=== PATIENT | male | born 1955 | race Caucasian/White ===

== ENCOUNTER → 2017-10-15 | Outpatient (CLI) | payer OTHER ==
[~2017-10-15] MED LIST: AZIT500T47 PO; BENA10TA53 PO; DIA5 PO; DIPH-740 PO; DOXY-179 PO; DULO30CA35 PO; FOLI20CA2 PO; GABA-503 PO; IBU800 PO; IBUP200C74 PO; KET10 PO; LOR5 PO; LOSA100T67 PO; METH2.5T43 PO; NITT TD; NONE NOW; OMEP10SU PO; OXYC-870 PO; OXYC5TAB38 PO; PAN40 PO; PEROXICAM; PRED50TA22 PO; SIMV10TA98 PO; SODI45SP NS
== END ==
LOC: LAB 15:17
PROVIDERS: ATTEND Family Medicine
DX: D45 Polycythemia vera (principal)
CPT/HCPCS: 36415; 85027

== ENCOUNTER → 2017-10-21 | Outpatient (CLI) | payer OTHER | LOC: LAB 15:41 | PROVIDERS: ATTEND Family Medicine | DX: D45 Polycythemia vera (principal) | CPT/HCPCS: 36415; 85027; 99195 ==

== ENCOUNTER → 2017-11-26 | Outpatient (CLI) | payer OTHER ==
[2017-11-26 15:04] VITALS: BP 133/42
== END ==
LOC: SPU 13:44
PROVIDERS: ATTEND Family Medicine
DX: D45 Polycythemia vera (principal)
CPT/HCPCS: 99195

== ENCOUNTER → 2017-11-26 | Outpatient (CLI) | payer OTHER | LOC: LAB 14:24 | PROVIDERS: ATTEND Family Medicine | DX: D45 Polycythemia vera (principal) | CPT/HCPCS: 36415; 85027 ==

== ENCOUNTER → 2017-11-29 | Outpatient (CLI) | payer OTHER ==
[~2017-11-29] MED LIST changes: +BARIUM SULFATE 148 GM POWDER ONE; +BARIUM SULFATE 240 ML ORAL SUS (NECTAR) ONE
--- NOTE | 2017-11-29 17:36 | RADIOLOGY IMAGING REPORT ---
FACILITY: [facility] [place] PATIENT NAME: David Galvan : 1955 MR: [id number] V: [id number] EXAM DATE: ORDERING PHYSICIAN: KERRY LARKIN TECHNOLOGIST: Location: [facility] Patient: David Galvan : 1955 Visit/Account:[id number] Date of Sevice: 11/29/2017 Exam type: ESOPH VIDEO SWALLOWING History: , Hoarseness, esophagitis Comparison: None. Findings: The modified barium swallow was performed by the speech pathologist. The patient received thin bariu m and various substances and a barium tablet. There was no demonstration of laryngeal penetration. Please see the speech pathologist report for complete details. The fluoroscopy dose area product was 285.10 micro-Michelle per meter squared IMPRESSION: 1. As above Report Dictated By: Rehana Zamora MD at 11/29/2017 5:31 PM Report E-Signed By: Rehana Zamroa MD at 11/29/2017 5:32 PM WSN:[id number]
--- NOTE | 2017-11-30 08:53 | SLP MODIFIED BARIUM SWALLOW ---
Speech Language Pathology Modified Barium Swallow Evaluation Report Date of Evaluation: 11/29/17 Patient Name: David Galvan Patient : 1955, 62yrs Physician: Pancho Garcia MD Clinician: Eileen Bhakta M.S., [facility]-CHEMICAL ETCH OPERATOR BACKGROUND The patient is a 62 yr old male. The patient was referred for an MBS to assess swallow structure and function as indicated by s/s of pharyngeal dysphagia including coughing/choking. Oxygen Supplementation: No Level of Consciousness: Non altered Cognitive/Linguistic: intact Orientation: x4 Language: -expressive: nonaphasic -receptive: nonaphasic Speech: -non-apraxic -non-dysarthric Voice -Dysphonia: none -Hypernasality: No -Wet Vocal Quality: No Non-verbal Oral Structure and Function: WFL for speech and swallow Pain with Swallow: Denies. He denied al symptoms of dysphagia during MBS. MODIFIED BARIUM SWALLOW In conjunction with radiology, lateral view with trials of the following consistencies: thin barium liquid (noncarbonated), barium marked pureed, mechanical soft, and regular food consistencies, and a 1cm barium pill. ORAL STAGE Thin Liquids: no evidence of dysphagia . WNL Pureed Foods: no evidence of dysphagia . WNL Mechanical Soft Foods: no evidence of dysphagia . WNL Regular Foods: no evidence of dysphagia . WNL. PHARYNGEAL STAGE Thin Liquid: no evidence of dysphagia WNL. Pureed Food: no evidence of dysphagia WNL. Mechanical Soft Foods: no evidence of dysphagia WNL. Regular Food Consistency: no evidence of dysphagia WNL. Penetration/Aspiration Scale*: Thin liquid: Score of 1= Contrast does not enter airway Puree: Score of 1= Contrast does not enter airway Soft and regular solids: Score of 1= Contrast does not enter airway *(Jimmiek et al. 1996) ESOPHAGEAL STAGE Peristaltic movement appears to be WNL Cervical Esophagus: Materials witnessed clearing from cervical esophagus WNL. Thoracic Esophagus: Materials witnessed clearing from upper/mid/lower thoracic esophagus WNL. ELADIA: Non witnessed. Pt reports only occasional symptoms of reflux. He reports he is inconsistent with prescription medication for this Laryngopharyngeal Reflux (LPR) None witnessed. BARIUM PILL: 1cm barium pill taken with thin liquids. No oral, pharyngeal, or esophageal dysphagia witnessed. SUMMARY Aspiration Risk: Low. Normal Swallow Study. No oral or pharyngeal stage dysphagia witnessed. No laryngeal penetration or aspiration witnessed. Pt. reported experiencing no symptoms of dysphagia during evaluation. 1.Dysphagia Severity Rating Scale (Gramigna, 2006; Anh et. al., 1990): 0 Normal swallow mechanism 2.No modification in consistency of diet is indicated. 3. Patient provided with written and verbal education regarding swallow anatomy and safe swallow recommendations. Pt encouraged to attend 1 or 2 follow up speech therapy treatments for further education regarding compensatory techniques and safety training. Pt reported he may do this but that he is very busy. RECOMMENDATIONS 1. Speech Therapy: Not recommended at this time. Thank you for this referral. Please call [phone] to contact the CHEMICAL ETCH OPERATOR. Eileen Bhakta M.S., [facility]-CHEMICAL ETCH OPERATOR REGISD
== END ==
LOC: RAD 03:31
PROVIDERS: ATTEND Otolaryngology
DX: K21.9 Gastro-esophageal reflux disease without esophagitis (principal); R49.0 Dysphonia
CPT/HCPCS: 74230

== ENCOUNTER 2017-12-29 11:38 | Outpatient (RCR) | payer OTHER ==
[~2017-12-29 11:38] MED LIST changes: -BARIUM SULFATE 148 GM POWDER ONE; -BARIUM SULFATE 240 ML ORAL SUS (NECTAR) ONE
[2018-01-05] MEDS ORDERED: IOPAMIDOL 76% 75 ML INFUS BTL 75 ML ONE (13:13)
--- NOTE | 2018-01-05 14:04 | RADIOLOGY IMAGING REPORT ---
FACILITY: [facility] [place] PATIENT NAME: David Galvan : 1955 MR: [id number] V: [id number] EXAM DATE: ORDERING PHYSICIAN: KERRY LARKIN TECHNOLOGIST: [place] [facility] [place] David Galvan : 1955 Visit/Account:[id number] Date of Sevice: 01/05/2018 CT neck with contrast Comparison: None Additional pertinent history: Dysphagia TECHNIQUE: Multiple axial images were obtained from the mid portion of the brain through the superio r mediastinum with IV contrast. Coronal and sagittal reformatted images were obtained off the axial source data. One of the following dose optimization techniques was utilized in the performance of t his exam: Automated exposure control; adjustment of the mA and/or kV according to the patient's size; or use of an iterative reconstruction technique. Specific details can be referenced in the [facility]'s radiology CT exam operational policy. CONTRAST: 75 mL of Isovue-370 FINDINGS: Visualized portions of the brain parenchyma:Negative Parotid glands/submandibular glands/thyroid: Negative Orbits: Negative Paranasal sinuses: Mild mucosal thickening involving the right maxillary sinus. Parapharyngeal spaces: Negative Nasopharynx/oropharynx/hypopharynx: Negative Tonsillar pillars: Negative Oral tongue/tongue base: Negative True and false cords: Negative Lymph node assessment: Scattered nonpathologically enlarged lymph nodes within the neck which may be reactive in nature. Surrounding soft tissues: Negative Vasculature: Mild calcified atherosclerotic plaque at the bifurcations of both common carotid arteri es. Osseous structures: Spondylitic change involving the cervical spine. Otherwise negative Lung apices: Negative IMPRESSION: 1. Scattered nonpathologically enlarged lymph nodes within the neck which are presumably reactive. 2. No other acute process involving the neck. Report Dictated By: Supa Tenorio MD at 01/05/2018 1:54 PM Report E-Signed By: Supa Tenorio MD at 01/05/2018 2:00 PM WSN:[id number]
== END 2018-01-05 18:00 | disposition home or self-care (01) ==
LOC: CT 11:38
PROVIDERS: ATTEND Otolaryngology
DX: Z01.812 Encounter for preprocedural laboratory examination (principal); R13.10 Dysphagia, unspecified; R49.0 Dysphonia; H92.09 Otalgia, unspecified ear; K21.9 Gastro-esophageal reflux disease without esophagitis; R59.0 Localized enlarged lymph nodes
CPT/HCPCS: 36415; 70491; 82565; Q9967

== ENCOUNTER 2018-01-12 12:56 | Outpatient (RCR) | payer OTHER ==
[2018-01-12 14:22] VITALS: BP 133/85
== END 2018-02-23 14:18 | disposition home or self-care (01) ==
LOC: SPU 12:56
PROVIDERS: ATTEND Family Medicine
DX: D45 Polycythemia vera (principal)
CPT/HCPCS: 36415; 85027

== ENCOUNTER → 2018-05-24 | Outpatient (CLI) | payer OTHER ==
[2018-05-24 11:29] LABS: PLATELET COUNT, AUTOMATED 317 K/uL (150-450)
== END ==
LOC: LAB 11:09
PROVIDERS: ATTEND Internal Medicine Hematology & Oncology
DX: D45 Polycythemia vera (principal); E61.1 Iron deficiency
CPT/HCPCS: 36415; 82728; 85025

== ENCOUNTER 2018-05-28 13:34 | Emergency (ER) | payer OTHER ==
--- NOTE | 2018-05-28 13:44 | ER Report ---
History and Physical Time Seen By MD: 13:45 Hx. of Stated Complaint: LIGHTHEADED, FATIGUED, BILAT ARM PAIN. PT HAS POLYCYTHMIA VERA. PT NEED PHLEBOTOMY TO RELIEVE SYMPTOMS. HPI/ROS CHIEF COMPLAINT: Needs phlebotomy HISTORY OF PRESENT ILLNESS: 62-year-old male patient presents to emergency room with complaint of needing a phlebotomy. Patient has a history of polycythemia vera and does need occasional watery. Patient states that he is had this done in the past, and has become anemic as a result of that. They did give him infusional iron which she states has had some improvement in his symptoms. Patient states that he is noticed within the last few days and he is very lightheaded, weak feeling, he states his shoulders have been achy. He denies having any fevers, chills, nausea, vomiting or diarrhea. Patient has been taking his medications appropriately. Allergies: Coded Allergies: No Known Drug Allergies (Verified , 05/28/18) Uncoded Allergies: CATS (Allergy, Mild, SNEEZING, 03/29/13) Home Meds Reported Medications Aspirin (ASPIR 81) 81 Mg Tablet.dr, 81 MG PO QDAY, TAB 05/28/18 Hydroxyurea (HYDROXYUREA) 25 Gm Powder, 30 MG PO DAILY 05/28/18 Mycophenolate Mofetil (CELLCEPT) 500 Mg Tab, 500 MG PO BID, TAB 05/28/18 Oxycodone Hcl (OXYCONTIN) 10 Mg Tab.er.12h, 10 MG PO HS, TAB 05/28/18 Naproxen Sodium (ALEVE) 220 Mg Capsule, 220 MG PO BID, CAPSULE 05/28/18 Gabapentin (GABAPENTIN) 300 Mg Capsule, 900 MG PO HS, CAPSULE 05/28/18 Duloxetine Hcl (CYMBALTA) 30 Mg Capsule.dr, 30 MG PO QDAY, #5 CAP TAKE 1 CAPSULE BY MOUTH EVERY DAY 05/15/14 Gabapentin (GABAPENTIN) 600 Mg Tablet, 300 MG PO DAILY 05/15/14 Discontinued Reported Medications Folic Acid (FOLIC ACID) 20 Mg Capsule, PO DAILY, CAPSULE 01/03/15 Methotrexate Sodium (METHOTREXATE) 2.5 Mg Tablet, 7.5 MG PO 2 times a week 01/03/15 Oxycodone Hcl/Acetaminophen (PERCOCET 10-325 MG TABLET) 1 Each Tablet, 1 EACH PO QHS 01/03/15 Losartan Potassium (LOSARTAN POTASSIUM) 100 Mg Tablet, 50 MG PO QDAY 05/15/14 Diphenhydramine Hcl (BENADRYL) 25 Mg Capsule, 50 MG PO QHS, CAPSULE TAKE 1 CAPSULE BY MOUTH EVERY 6 TO 8 HOURS 05/15/14 Omeprazole Magnesium (PRILOSEC) 10 Mg Suspdr.pkt, 1 TAB PO QDAY TAKE THREE TABLETS BY MOUTH ONCE A DAY 05/15/14 Prednisone (PREDNISONE) 50 Mg Tablet, 30 MG PO QDAY 05/15/14 Ibuprofen (ADVIL) 200 Mg Capsule, 1-2 CAP PO TID, CAPSULE 05/15/14 Discontinued Scripts Diazepam (VALIUM) 5 Mg Tablet, 5 MG PO 2-3XD PRN for MUSCLE SPASMS, #15 TAB 0 Refills TAKE ONE TABLET BY MOUTH TWO TO THREE TIMES A DAY Prov:FARHAD FULLER MD 01/03/15 Azithromycin (AZITHROMYCIN) 500 Mg Tablet, 1 TAB PO QDAY, #3 TAB 0 Refills TAKE ONE TABLET BY MOUTH EVERY DAY Prov:FARHAD FULLER MD 01/03/15 Past Medical/Surgical History Patient has a past medical history of an asymmetric CIDP, viral pericarditis, asthma, reflux, arthritis, rib fractures, take fever, polycythemia vera, alcohol use. Patient has surgical history of finger surgery, hernia repair. Patient has family medical history of CAD, stroke, diabetes. Reviewed Nurses Notes: Yes Hx Smoking: No Smoking Status: Current: Every Day Smoker, Light Tobacco Smoker Exposure to Second Hand Smoke?: No Hx Substance Use Disorder: No Hx Alcohol Use: Yes (WINE 2 NIGHTLY) Constitutional Vital Sign - Last 24 Hours 05/28/18 05/28/18 05/28/18 05/28/18 13:39 13:45 14:00 14:15 Temp 98.9 Pulse 73 71 62 63 Resp 16 B/P (MAP) 133/95 128/89 (102) Pulse Ox 94 94 94 92 O2 Delivery Room Air 05/28/18 05/28/18 05/28/18 05/28/18 14:30 14:45 15:00 15:15 Pulse 61 68 60 63 B/P (MAP) 133/92 (106) 137/89 (105) Pulse Ox 91 94 93 93 05/28/18 05/28/18 05/28/18 05/28/18 15:30 15:45 15:55 16:00 Pulse 62 66 70 B/P (MAP) 142/101 (115) 128/109 (115) 142/94 (110) Pulse Ox 95 95 93 05/28/18 05/28/18 16:15 16:30 Pulse 68 B/P (MAP) 138/95 (109) Pulse Ox 95 Physical Exam General Appearance: The patient is alert, has no immediate need for airway protection and no current signs of toxicity. Respiratory: Chest is non tender, lungs are clear to auscultation. Cardiac: regular rate and rhythm Gastrointestinal: Abdomen is soft and non tender, no masses, bowel sounds normal. Musculoskeletal: Neck: Neck is supple and non tender. Extremities have full range of motion and are non tender. Skin: No rashes or lesions. DIFFERENTIAL DIAGNOSIS: After history and physical exam differential diagnosis was considered for polycythemia, elevated hematocrit. Medical Decision Making ED Course/Re-evaluation ED Course Patient was medicated exam room, history and physical were obtained. Differential diagnoses were considered. On examination lungs are clear, heart is regular, abdomen soft nontender. With patient having recent lab work done we refrain from driving anymore lab at this time. At that time his hematocrit was 51.3. We were going to go ahead and do a therapeutic phlebotomy, however there is not any material available here in the hospital, is all done through the cancer center. We did try to get in contact with the special procedures nurse who is on-call today, however she states she is not going to coming in for this phlebotomy as it does not fit their standards for requiring emergent phlebotomy, a hematocrit greater than 65. We did speak with MANJINDER Rendon, who did matt robledo with the director of the cancer Center as well as the nurse and stated that with her being willing to come in tomorrow to do that she felt that was sufficient. I spoke with the patient patient states that he does live in [place] and that it would be 70 miles round trip. As result of that I did feel that the nurse, and Imuran do that. I did speak with Karen Hansen who verba lized understanding. As most of the work care of this patient will be done/procedures and believe that we should go ahead and cancel the billing for the emergency room this day. Decision to Disposition Date: May 28, 2018 Decision to Disposition Time: 14:54 Depart Departure Latest Vital Signs Vital Signs Date Time Temp Pulse Resp B/P (MAP) Pulse Ox O2 Delivery O2 Flow Rate FiO2 05/28/18 16:30 138/95 (109) 05/28/18 16:15 68 95 05/28/18 13:39 98.9 16 Room Air Impression: Primary Impression: Polycythemia vera Condition: Improved Disposition: HOME OR SELF-CARE Referrals: AMADO MÉNDEZ DO (PCP) Patient Instructions: Polycythemia Vera (DC) Additional Instructions: You will have the phlebotomy done. Get plenty of rest. Continue with your medications. Have a CBC repeated on Wednesday, with the results going to your service center supervisor. ELVIA PLATA May 28, 2018 13:44
[2018-05-28] MEDS ORDERED: OXYC-823 PO (13:49)
[2018-05-28] MEDS ORDERED: NAPR220C12 PO (13:49)
[2018-05-28] MEDS ORDERED: GABA-549 PO (13:49)
[2018-05-28] MEDS ORDERED: CELLC500PT PO (13:49)
[2018-05-28] MEDS ORDERED: HYDR25PO PO (13:49)
[2018-05-28] MEDS ORDERED: ASPI-1471 PO (13:49)
[2018-05-28 16:30] VITALS: BP 138/95
== END 2018-05-28 16:46 | disposition home or self-care (01) ==
LOC: ER 13:41
DX: D45 Polycythemia vera (principal)
CPT/HCPCS: 99282

== ENCOUNTER → 2018-06-03 | Outpatient (CLI) | payer OTHER ==
[~2018-06-03] MED LIST changes: +ASPI-1471 PO; +CELLC500PT PO; +GABA-549 PO; +HYDR25PO PO; -LOSA100T67 PO; +LOSA100T69 PO; +NAPR220C12 PO; +OXYC-823 PO
[2018-06-03 16:54] LABS: PLATELET COUNT, AUTOMATED 281 K/uL (150-450)
== END ==
LOC: LAB 16:35
PROVIDERS: ATTEND Internal Medicine Hematology & Oncology
DX: D45 Polycythemia vera (principal); E61.1 Iron deficiency
CPT/HCPCS: 36415; 82728; 85025

== ENCOUNTER → 2018-06-10 | Outpatient (CLI) | payer OTHER ==
[2018-06-10 11:52] LABS: PLATELET COUNT, AUTOMATED 298 K/uL (150-450)
== END ==
LOC: LAB 11:16
PROVIDERS: ATTEND Internal Medicine Hematology & Oncology
DX: D45 Polycythemia vera (principal); E61.1 Iron deficiency
CPT/HCPCS: 36415; 82728; 85025

== ENCOUNTER → 2018-06-22 | Outpatient (CLI) | payer OTHER ==
[2018-06-22 12:31] LABS: PLATELET COUNT, AUTOMATED 214 K/uL (150-450)
== END ==
LOC: LAB 12:14
PROVIDERS: ATTEND Internal Medicine Hematology & Oncology
DX: D45 Polycythemia vera (principal); E61.1 Iron deficiency
CPT/HCPCS: 36415; 82728; 85025

== ENCOUNTER → 2018-07-15 | Outpatient (CLI) | payer OTHER ==
[2018-07-15 17:27] LABS: PLATELET COUNT, AUTOMATED 184 K/uL (150-450)
== END ==
LOC: LAB 16:26
PROVIDERS: ATTEND Internal Medicine Hematology & Oncology
DX: D45 Polycythemia vera (principal); E66.1 Drug-induced obesity
CPT/HCPCS: 36415; 82728; 85025

== ENCOUNTER → 2018-07-29 | Outpatient (CLI) | payer OTHER ==
[2018-07-29 14:16] LABS: PLATELET COUNT, AUTOMATED 194 K/uL (150-450)
== END ==
LOC: LAB 13:50
PROVIDERS: ATTEND Internal Medicine Hematology & Oncology
DX: D45 Polycythemia vera (principal); E61.1 Iron deficiency
CPT/HCPCS: 36415; 82728; 85025

== ENCOUNTER → 2018-08-10 | Outpatient (CLI) | payer OTHER ==
[2018-08-10 17:03] LABS: PLATELET COUNT, AUTOMATED 236 K/uL (150-450)
== END ==
LOC: LAB 16:41
PROVIDERS: ATTEND Internal Medicine Hematology & Oncology
DX: D45 Polycythemia vera (principal); E61.1 Iron deficiency
CPT/HCPCS: 36415; 85025

== ENCOUNTER → 2018-08-19 | Outpatient (CLI) | payer OTHER ==
[2018-08-19 12:26] LABS: PLATELET COUNT, AUTOMATED 256 K/uL (150-450)
== END ==
LOC: LAB 12:04
PROVIDERS: ATTEND Internal Medicine Hematology & Oncology
DX: D45 Polycythemia vera (principal); E61.1 Iron deficiency
CPT/HCPCS: 36415; 82728; 85025

== ENCOUNTER → 2018-10-14 | Outpatient (CLI) | payer OTHER ==
[~2018-10-14] MED LIST changes: -GABA-503 PO; +GABA-533 PO; -LOSA100T69 PO; +LOSA100T75 PO
[2018-10-14 15:42] LABS: PLATELET COUNT, AUTOMATED 293 K/uL (150-450)
== END ==
LOC: LAB 15:29
PROVIDERS: ATTEND Internal Medicine
DX: D75.1 Secondary polycythemia (principal)
CPT/HCPCS: 36415; 82040; 82247; 82310; 82374; 82435; 82565; 82947; 84075; 84132; 84155; 84295; 84450; 84460; 84520; 85025

== ENCOUNTER 2018-10-24 14:00 | Outpatient (RCR) | payer OTHER ==
[2018-08-01 08:33] VITALS: BP 104/64
--- NOTE | 2018-08-02 01:56 | [facility] ONCOLOGY NOTE ---
EVENT DATE: August 01, 2018 CHIEF COMPLAINT/REASON FOR VISIT Mr. Galvan is a pleasant 63-year-old gentleman with JAK2-positive polycythemia vera, here for initial consultation. HISTORY OF PRESENT ILLNESS Mr. Galvan presents to discuss his PV. He was diagnosed a little over a year ago and started on Hydrea. His dose has ranged from 500 to 2000 mg in divided doses over the day. On any dose higher than 1000 mg, the patient struggles with mouth sores and significant fatigue. However, when he is only on 500 mg daily, his response does not seem to be adequate. On higher doses combined with phlebotomy, he did develop severe iron-deficiency anemia and required a dose of IV iron. Thankfully, his numbers did not go too high. He has some mild neutropenia with an ANC of 1.1, which may be due to the Hydrea or some mild progression to early myelofibrosis. He has a high MCV as well, which is indicative of possible early myelofibrosis. At his [place] lab, he has had his B12, folate, and thyroid checked, which were all normal. The patient's quality of life and the effects of PV and Hydrea are his biggest issues today. I think he is an ideal candidate for Jakafi based on these above issues. We discussed how I try to keep patients on Hydrea and phlebotomy if they are tolerating it, but he is clearly not, and I believe his quality of life would be much better on this second-line therapy. PAST MEDICAL HISTORY 1. Polycythemia vera. 2. Asymmetric chronic inflammatory demyelinating polyneuropathy. 3. History of viral pericarditis in 1977. 4. GERD. 5. Arthritis (osteoarthritis). FAMILY HISTORY Remarkable for coronary artery disease in the father and grandfather. Diabetes is in the family as well. SOCIAL HISTORY Rare alcohol use. No other habits of concern. Presents with his spouse or partner today. REVIEW OF SYSTEMS CONSTITUTIONAL: No fevers, chills, or significant weight change. HEENT: No headache or vision changes. CARDIOVASCULAR: Positive fatigue, but no chest pain or dyspnea on exertion. He does feel dizzy at times with standing up, which may be due to the Hydrea. RESPIRATORY: No shortness of breath, wheeze, or cough. GASTROINTESTINAL: No nausea or vomiting. He did have splenomegaly with diagnosis, but this has resolved with the Hydrea. ENDOCRINE: No heat or cold intolerance. PSYCHIATRIC: No anxiety or depression. SKIN: No concerning rashes or lesions. MUSCULOSKELETAL: Positive fatigue that can be profound. Positive osteoarthritis. IMMUNOLOGIC: No history of recurring infections, which is fortunate. The remainder of 14-point review of systems is otherwise negative. PHYSICAL EXAMINATION VITAL SIGNS: Blood pressure 104/64, pulse 81, respiratory rate 16, temperature 98.2 Fahrenheit, oxygen saturation 95% on room air. Weight 71.4 kg. Pain 2/10, fatigue 0/10 today. He does have more profound fatigue at other times. GENERAL: Stable condition, resting comfortably in the chair. HEENT: Normocephalic, atraumatic. CARDIOVASCULAR: Regular rate and rhythm. LUNGS: Clear. ABDOMEN: Soft, nontender. He has no organomegaly, but did have some in the past, he states. EXTREMITIES: No clubbing, cyanosis, or edema. SKIN: No concerning findings. Remainder of physical exam otherwise unremarkable. IMPRESSION/REPORT/PLAN Mr. Galvan is a pleasant 63-year-old gentleman with the following: JAK2-positive polycythemia vera. He is failing first-line therapy with Hydrea and phlebotomies. This treatment is complicated by frequent mouth sores, debilitating fatigue, iron deficiency. I believe it is very appropriate for the above reasons to move to second-line therapy with Jakafi. I am also concerned that he may be developing early myelofibrosis, and this would be beneficial in that regard as well. We had an excellent discussion about the diagnosis, treatment options, and natural history of polycythemia vera. We will work to get this approved with his insurance, as it is FDA-approved and appropriate for his disease, and get him started soon. Given the fact that his hematocrit is at 43%, we will stop the Hydrea now, as he is overly sensitive to this, even at low doses, and move forward with the Jakafi in the next week or two. Answered all of their many questions today. BILLING: Total time 45 minutes, counseling time 35 minutes. Billing level 4, new patient. MTDD
[2018-08-22 14:01] VITALS: BP 128/88
[2018-08-22 14:54] LABS: PLATELET COUNT, AUTOMATED 279 K/uL (150-450)
--- NOTE | 2018-08-23 05:45 | ONCOLOGY FOLLOW UP NOTE ---
EVENT DATE: August 22, 2018 CHIEF COMPLAINT Followup for JAK2-positive polycythemia vera. HISTORY OF PRESENT ILLNESS Patient is a 63-year-old male who is seen today in followup. He was diagnosed with JAK2-positive polycythemia vera and started on Hydrea. He had significant toxicity with the Hydrea, and this was stopped on 08/01/18. Dr. Saleh is recommending treatment with Jakafi. This is being arranged through his insurance, so he has not been able to start this as yet. Overall, he feels better since being off the Hydrea, but understands the importance of beginning the Jakafi as soon as possible. He will be traveling to [place] from 09/10/18 through 10/11/18 during his [place] break from the [employer]. He plans to follow up with his previous director corporate sales, Dr. Susan Barker. He does have continued fatigue, but feels slightly improved. His pain from CIDP is well controlled on OxyContin 10 mg at bedtime. He does have some mild constipation. PAST MEDICAL HISTORY 1. Polycythemia vera. 2. Asymmetric chronic inflammatory demyelinating polyneuropathy. 3. History of viral pericarditis in 1977. 4. GERD. 5. Arthritis (osteoarthritis). FAMILY HISTORY Remarkable for coronary artery disease in the father and grandfather. Diabetes is in the family as well. SOCIAL HISTORY . He is a professor at the [employer]. Rare alcohol use. No other habits of concern. MEDICATIONS 1. Aspirin 81 mg daily. 2. CellCept 500 mg b.i.d. 3. OxyContin 10 mg at bedtime. 4. Naproxen 220 mg b.i.d. 5. Gabapentin 300 mg every a.m., 900 mg at bedtime. 6. Duloxetine 30 mg daily. ALLERGIES 1. KETOROLAC. 2. DIPHENHYDRAMINE. REVIEW OF SYSTEMS A 12-point review of systems is performed and is negative except as stated above. PHYSICAL EXAMINATION VITAL SIGNS: Blood pressure 128/88, pulse 83, respirations 16, temperature 98, O2 saturation 95%. GENERAL: Patient is a well-developed, well-nourished male in no acute distress. HEAD: Normocephalic, atraumatic. EYES: Sclerae anicteric. MOUTH: Moist mucous membranes. LUNGS: Clear bilaterally. CARDIOVASCULAR: Heart rate regular, 83 per minute, without murmur, S3 or S4. ABDOMEN: Soft, nontender. No palpable spleen. EXTREMITIES: No edema. NEUROLOGIC: Nonfocal. LABORATORY CBC today reveals a WBC of 7.8, hemoglobin 15.9, hematocrit 46.3, MCV 117.1, platelets 279,000. CMP was within normal limits. IMPRESSION AND PLAN The patient is a 63-year-old male with JAK2-positive polycythemia vera. He was treated initially with Hydrea, but had significant side effects including mouth sores and fatigue. He previously had undergone phlebotomy, but developed iron- deficiency anemia. As his MCV has increased, Dr. Saleh is suspecting early myelofibrosis. 1. Polycythemia vera/myelofibrosis. Patient will begin Jakafi 10 mg twice per day once approved by his insurance. 2. I spent a total of 45 minutes with the patient today reviewing possible side effects of the Jakafi. These would include anemia, thrombocytopenia, neutropenia, and increased liver function tests. He will be monitored closely with labs. 3. Patient will follow up with Dr. Susan Barker in [place] while he is on [place] . He will be seen again by Dr. Saleh on 10/24/17. CBC and CMP will be repeated at that time. [facility]
[2018-09-02 16:10] LABS: PLATELET COUNT, AUTOMATED 336 K/uL (150-450)
[2018-09-09 15:30] LABS: PLATELET COUNT, AUTOMATED 325 K/uL (150-450)
[~2018-10-24 14:00] MED LIST changes: +INFLUENZA VIRUS VAC 0.5ML SYR IM ONLY ONE
[2018-10-24 14:06] VITALS: BP 134/84
[2018-10-24] MEDS ORDERED: RUXO10TA PO (14:11)
--- NOTE | 2018-10-25 05:42 | ONCOLOGY FOLLOW UP NOTE ---
EVENT DATE: October 24, 2018 CHIEF COMPLAINT/REASON FOR VISIT Mr. Galvan is a very pleasant gentleman with polycythemia vera, currently on Jakafi, who presents for followup. He is on no longer on Hydrea. HISTORY OF PRESENT ILLNESS Mr. Galvan returns. Please see my prior note from the fall of 2017 for more details. In short, the patient was diagnosed with polycythemia in the [facility] and had been treated with Hydrea. He felt quite unwell and had significant mucositis with this. As a result, I recommended switching to Jakafi. He did this around the time of and has been on it for approximately two months. He feels "profoundly better" with Jakafi. He is on 10 mg twice daily, which is not the highest dose but is quite effective for him. His CBC is markedly improved. I believe his bone marrow is getting healthier as the MCV is improving, as well as the MCH; however, this does coincide with discontinuation of the Hydrea, which raised both of those. No need for a bone marrow biopsy, and the patient has never had a bone marrow biopsy, as this is a diagnosis that can be made by genetic testing of the peripheral blood. He notes many symptoms have improved since starting the Jakafi, including his energy. He notes less headaches as well as other nonspecific symptom improvement, which is common with treatment of polycythemia with Jakafi. No other new issues today. PAST MEDICAL HISTORY 1. Polycythemia vera. 2. Asymmetric chronic inflammatory demyelinating polyneuropathy. 3. History of viral pericarditis in 1977. 4. GERD. 5. Arthritis (osteoarthritis). FAMILY HISTORY Remarkable for coronary artery disease in the father and grandfather. Diabetes is in the family as well. SOCIAL HISTORY Rare alcohol use. No other habits of concern. Presents with his spouse or partner today. REVIEW OF SYSTEMS CONSTITUTIONAL: No fevers, chills, or weight change. HEENT: No headache or vision changes. CARDIOVASCULAR: No chest pain, dyspnea on exertion, or edema. RESPIRATORY: No shortness of breath, wheeze, or cough. GASTROINTESTINAL: No nausea, vomiting, diarrhea, or constipation. GENITOURINARY: No dysuria or hematuria. MUSCULOSKELETAL: No weakness or joint pain. PSYCHIATRIC: No anxiety or depression. NEUROLOGIC: No numbness or headaches. HEMATOLOGIC: No bruising or bleeding. SKIN: No concerning rashes or lesions. The remainder of 14-point review of systems is otherwise negative. PHYSICAL EXAMINATION VITAL SIGNS: Blood pressure 134/84, pulse 80, respiratory rate 16, temperature 98.8 Fahrenheit, oxygen saturation 95% on room air. Weight 73.7 kg. Pain 0/10, fatigue 0/10. GENERAL: Stable condition, resting comfortably in the chair. HEENT: Normocephalic, atraumatic. Full physical exam deferred today due to amount of time counseling and coordinating care. He notes no abdominal pain. IMPRESSION/REPORT/PLAN Mr. Galvan is a pleasant 63-year-old gentleman with the following: * Polycythemia vera. He had significant side effects with Hydrea, so we moved to second-line Jakafi. He is on a dose of 10 mg twice a day. Hydrea has been discontinued. He does continue on aspirin, which was recommended. He notes profound improvement in his symptoms. This is expected with Jakafi use in polycythemia. We had a discussion today about the natural history of this disease and the recommendation to utilize Jakafi indefinitely. While this is challenging for him, he does note that he feels much better and is willing to do this. Fortunately, his co-pays have been reasonable thus far. We will continue to work with Social Work to try to maintain cost effectiveness for the patient so he can continue the drug. I would like to see him every three months with labs monthly for at least the next few months. If labs improve and remain stable like they are now, we may be able to space out this labs. BILLING: Return visit level 4. Total time 30 minutes, counseling time 20. MTDD
== END 2018-10-30 ==
LOC: ONC 14:00
PROVIDERS: ATTEND Internal Medicine
DX: D45 Polycythemia vera (principal); R53.83 Other fatigue; E61.1 Iron deficiency; Z23 Encounter for immunization
CPT/HCPCS: 36415; 82040; 82247; 82310; 82374; 82435; 82565; 82947; 84075; 84132; 84155; 84295; 84450; 84460; 84520; 85025; 90471; 90674; 99202; 99212

== ENCOUNTER → 2019-03-06 | Outpatient (RCR) | payer OTHER ==
[2018-12-09 12:05] VITALS: BP 136/86
[2018-12-09 12:28] LABS: PLATELET COUNT, AUTOMATED 315 K/uL (150-450)
--- NOTE | 2018-12-10 08:08 | ONCOLOGY FOLLOW UP NOTE ---
EVENT DATE: December 09, 2018 CHIEF COMPLAINT Mr. Galvan is a 63-year old pleasant gentleman with polycythemia vera, currently on Jakafi. He initiated Jakafi around the end of July 2018. Previously, he was on Hydrea, although had difficulty with tolerance. HISTORY OF PRESENT ILLNESS Mr. Galvan returns for followup today. In short, the patient was diagnosed with polycythemia in the [facility] and had been treated with Hydrea. He felt quite unwell and had significant mucositis with this. As a result, the recommendation was made to switch therapy over to Jakafi. He switched over around 2017. He is on 10 mg twice daily, which is not the highest dose but in the past was shown to be quite effective for him. His CBC had improved as had his MCV. At that time, we thought that maybe his bone marrow was improving and getting healthier. There was no need for a bone marrow biopsy at that time. Diagnosis was made by genetic testing of the peripheral blood. He is again JAK2 positive. At this last visit, he reported improved energy, less frequent headaches and was actually feeling quite well. Today, he is here for followup and reports significant fatigue. He reports that he has severe exhaustion, not all days but at least two to three times a week where he actually has to call into work. He feels so tired on the days that he is able to go to work that he typically goes to bed around 6 p.m. shortly after returning from work. Again, this is not all days but is severe when it does occur. He reports that his appetite is better as is his weight and states that he is eating quite well. He has no longer had any mucositis as he did with Hydrea. He does have significant arthralgias, which he says are worse at night. He is also on Oxycodone 10 mg at bedtime, prescribed by his neurologist. 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 He incidentally reports he is also on CellCept. His is with him in the office today. She reports quite a bit of stress as she works out of state in [place] as a teacher. The patient and his tell me that his is typically gone for ten weeks at a time teaching. She also tries to do some on-line teaching when here in [place]. They are stressed about potentially moving to [place], although this is not scheduled yet for any time in the near future. They are also stressed about insurance and cost if they were to move and they also report that they live about 35 miles away from [place] without any good cell phone service and not many neighbors around to help. PAST MEDICAL HISTORY 1. Polycythemia vera. 2. Asymmetric chronic inflammatory demyelinating polyneuropathy. 3. History of viral pericarditis in 1977. 4. GERD. 5. Arthritis (osteoarthritis). FAMILY HISTORY Remarkable for coronary artery disease in the father and grandfather. Diabetes is in the family as well. SOCIAL HISTORY Rare alcohol use. No other habits of concern. Presents with his spouse or partner today. MEDICATIONS 1. Aspirin 81 mg daily. 2. CellCept 500 mg b.i.d. 3. OxyContin 10 mg at bedtime. 4. Naproxen 220 mg b.i.d. 5. Gabapentin 300 mg q.a.m., 900 mg at bedtime. 6. Duloxetine 30 mg daily. ALLERGIES Ketorolac, Diphenhydramine. REVIEW OF SYSTEMS CONSTITUTIONAL: Patient reports significant fatigue and reports severe exhaustion at least two to three days per week. He denies any recent fevers, chills or infections. No night sweats. HEENT: He denies any blurry vision. No headaches. CARDIOVASCULAR: No chest pain, dyspnea on exertion or edema. RESPIRATORY: No shortness of breath. No cough, wheezes, hemoptysis or pleuritic chest pain. GASTROINTESTINAL: No abdominal pain, nausea, vomiting, diarrhea or constipation. His appetite has improved and he is eating and drinking fluids well. MUSCULOSKELETAL: He reports diffuse arthralgias. These are worse at night for him. PSYCHIATRIC: He denies any severe anxiety, severe depression, suicidal or homicidal ideation. NEUROLOGIC: He denies any headaches. No numbness or tingling. HEMATOLOGIC: He denies any bruising or suspicious lesions. DERM: He denies any rash. He does report that he usually has some facial erythema which tends to wax and wane. This may be slightly worse than a couple of weeks ago, per Nanci The remainder of a 12-point review of system is performed and is otherwise negative. PHYSICAL EXAMINATION VITAL SIGNS: Temperature 99.0 degrees Fahrenheit, respirations 16, oxygen saturation 91% room air, BP 136/86. GENERAL: This is a pleasant 63-year old gentleman with noticeable tomy facies but otherwise appears well-hydrated, well-nourished and is in no acute distress. EYES: Anicteric sclerae. ENT/MOUTH: No mucositis. No suspicious ulcerations or lesions. NECK: Supple. No lymphadenopathy. No JVD. RESPIRATORY; Lungs reveal clear breath sounds to auscultation bilaterally. No wheezes, rales or rhonchi. Chest expansion is symmetrical. Respiratory effort is normal. CARDIOVASCULAR: Regular rate and rhythm. No ectopy. GI: Abdomen soft, nontender, nondistended. NEURO: Patient is awake, alert and oriented x3. PSYCH: Mood and affect are appropriate and within normal limits. DERM: Patient has obvious facial redness on exam today. No rash. No petechiae or purpura. EXTREMITIES: No edema. No clubbing or cyanosis. MUSCULOSKELETAL: No pain to palpation of bony spinous processes. Gait is steady. LABORATORY DATA CBC today: WBC 6.2, ANC 4.0, hemoglobin 18.6, hematocrit 55.1%, platelets 315,000, MCV still elevated but improved down to 99, MCH still elevated but improved at 33.4. He still has evidence of a macrocytic hyperchromia. CMP today: Unremarkable. Sodium 139, potassium 4.5, serum creatinine 0.90, calcium 9.5, random glucose normal at 93, total bilirubin 0.6, AST 25, ALT 29, alkaline phosphatase 55, total protein 7.0, albumin 4.0, TSH normal at 1.44, ferritin low at 15, iron saturation 60.6%. Vitamin B12 and folate are pending. Ferritin was resulted after the time of this dictation. IMPRESSION AND PLAN Mr. Galvan is a pleasant 63-year-old gentleman with a JAK2 positive polycythemia vera. He had significant side effects when previously on Hydrea so this was discontinued and he was moved over to second-line treatment with Jakafi. He is currently on 10 mg b.i.d. This is not the highest dose. However, he was doing quite well on this at his last visit. Hydrea has now been completely discontinued. He continues on daily baby aspirin, which was recommended. He was noted to have significant improvement in his symptoms when seen a couple of months ago. His last phlebotomy was approximately six months ago on June 22, 2018. He has not had phlebotomy since that time. He did become anemic and iron deficient in the past, which did require one dose of IV iron for correction. 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 Nothing is scheduled yet, although he has seen a physician/cotton buyer in [place] in the past. They have no plans to move anytime in the near future but they are trying to work this out as his is away working for approximately ten weeks at a time. They report that they do not have any family nearby to help out and his is concerned with him being at home alone given his significant fatigue. His co-pays have been reasonable thus far but we will continue to work with our social secretary to maintain cost effectiveness so that he may continue the drug. Today, he is having worsening fatigue, which he states that is exhaustion that is occurring about two to three times per week, at time causing him to be unable to go to work. This is extremely concerning. He also has widespread diffuse arthralgias. 1. Polycythemia vera: Currently on Jakafi 10 mg b.i.d. We did initially discuss potentially dose reduction. However, I think for now we would like to keep him on his current dose at 10 mg twice a day as he's not on the maximum dose and his platelets are in great range. He does need phlebotomy today. 2. Hematocrit: Currently at 55% with hemoglobin up to 18.6. We will plan for one unit of phlebotomy (500 mL) today x1. I did explain to the patient that I think he may end up needing therapeutic phlebotomy on a more routine schedule throughout treatment and in the interim. He verbalized understanding. 3. He may have a component of myelofibrosis with his polycythemia, although platelet count is in excellent range today at 315,000. This is another reason we would like to go ahead and continue with this current dose of Jakafi. I think it's better to make changes in a step kirby pattern so we can better assess response. 4. Patient and his are all in agreement with the current treatment plan. 5. Labs: I have added on an iron panel to today's labs and will also check a TSH, B12 and folate level given his fatigue. 6. I have asked the patient to return to clinic in three to four weeks. Patient reports he is already scheduled at that time to followup with Dr. Saleh. I did recommend that he call our office and may be seen sooner, by me, in the interim for any questions or concerns. . URSULA
[2019-01-09 14:33] VITALS: BP 136/91
[2019-01-09 15:07] LABS: PLATELET COUNT, AUTOMATED 348 K/uL (150-450)
--- NOTE | 2019-01-10 09:01 | [facility] ONCOLOGY NOTE ---
EVENT DATE: January 09, 2019 CHIEF COMPLAINT/REASON FOR VISIT Mr. Galvan is a pleasant 63-year old gentleman with polycythemia vera, currently on Jakafi 10 mg twice a day, who presents for followup. He is no longer on Hydrea. HISTORY OF PRESENT ILLNESS Mr. Galvan returns. Please see my note from the fall of 2017 for more details. In short, he was a patient diagnosed with polycythemia in the [facility] and had been treated with Hydrea. He felt quite unwell with this and had significant mucositis with this. He considered quitting work. As a result, we switched him to Jakafi. We did this in early August 2019 and he felt "profoundly better with Jakafi". His CBC was markedly improved at first with improvements of the MCV as well as the MCH. However, we did see some progressive worsening of his hematocrit and he required a phlebotomy about three weeks ago. He notes much less headaches as well as nonspecific symptom improvement. I do believe we need to increase the dose. His platelet count is 315. We will increase to 15 mg twice a day and arrange for a second phlebotomy. PAST MEDICAL HISTORY 1. Polycythemia vera. 2. Asymmetric chronic inflammatory demyelinating polyneuropathy. 3. History of viral pericarditis in 1977. 4. GERD. 5. Arthritis (osteoarthritis). FAMILY HISTORY Remarkable for coronary artery disease in the father and grandfather. Diabetes is in the family as well. SOCIAL HISTORY Rare alcohol use. No other habits of concern. Presents with his spouse or partner today. REVIEW OF SYSTEMS CONSTITUTIONAL: No fevers, chills, or weight change. Positive fatigue, which has worsened again. HEENT: No headache or vision changes. CARDIOVASCULAR: No chest pain, dyspnea on exertion, or edema. RESPIRATORY: No shortness of breath, wheeze, or cough. GASTROINTESTINAL: No nausea, vomiting, diarrhea, or constipation. GENITOURINARY: No dysuria or hematuria. MUSCULOSKELETAL: No weakness or joint pain. PSYCHIATRIC: No anxiety or depression. NEUROLOGIC: No numbness or headaches. HEMATOLOGIC: No bruising or bleeding. SKIN: No concerning rashes or lesions. The remainder of 14-point review of systems is otherwise negative. PHYSICAL EXAMINATION VITAL SIGNS: Blood pressure 136/91, pulse 80, respiratory rate 16, temperature 99.1 Fahrenheit, oxygen saturation 90% on room air. Weight 75.3 kg. Pain 0/10, fatigue 5/10. GENERAL: Stable condition, resting comfortably in the chair. ECOG Performance Status of 1. HEENT: Normocephalic, atraumatic. LYMPHATIC: No appreciable cervical, supraclavicular or axillary adenopathy. ABDOMEN: Soft, nontender. No organomegaly or masses. I do not palpate his spleen today, which is excellent. Remainder of physical exam otherwise unremarkable. He notes that his blood pressure has been slightly elevated and I do not have a good etiology for this. The high diastolic could be related to the need for a phlebotomy. I do not see this as a normal side effect of Jakafi, though. IMPRESSION/REPORT/PLAN Mr. Galvan is a pleasant 63-year-old gentleman with the following: Polycythemia vera. He had significant side effects with Hydrea so we moved to second-line Jakafi. He is on a dose of 10 mg twice a day and we will increase it to 15 mg twice a day. He should continue on the aspirin. He had noted profound improvement in his symptoms but has developed more fatigue as his hematocrit sonam. He may need periodic phlebotomies. We will continue to work with social work to try to maintain the cost effectiveness for the patient so he can continue the drug. I would like to see him next month given the change in the dose. Hopefully, we can get him feeling better. I answered all of his many questions today. BILLING: Return visit level 4. Total time 30 minutes, counseling time 20. MTDD
[2019-01-30 10:05] VITALS: BP 116/70
[2019-01-30 13:24] LABS: PLATELET COUNT, AUTOMATED 405 K/uL (150-450)
--- NOTE | 2019-01-31 11:07 | [facility] ONCOLOGY NOTE ---
EVENT DATE: January 30, 2019 CHIEF COMPLAINT/REASON FOR VISIT Mr. Galvan is a very pleasant 63-year old gentleman with polycythemia vera, currently on Jakafi 15 mg twice daily, here for followup. He is no longer on Hydrea. HISTORY OF PRESENT ILLNESS Mr. Galvan returns. Please note my note from the fall for more details. In short, he was a patient diagnosed with polycythemia in the [facility], treated with Hydrea. He felt quite unwell, though, and had significant mucositis with this. He considered quitting work. As a result, we switched him to Jakafi and we did this in early August 2018 and he felt "profoundly better with Jakafi". However, we noted a worsening of his symptoms and hematocrit in December 2018, and he required a phlebotomy in late November. The headaches were improved but he continues to feel quite fatigued. His B12 was borderline low. He was not yet taking B12, which we discussed briefly, I believe. We increased his Jakafi to 15 mg twice a day and arranged for a second phlebotomy in December. He feels no better today, which is unfortunate. PAST MEDICAL HISTORY 1. Polycythemia vera. 2. Asymmetric chronic inflammatory demyelinating polyneuropathy. 3. History of viral pericarditis in 1977. 4. GERD. 5. Arthritis (osteoarthritis). FAMILY HISTORY Remarkable for coronary artery disease in the father and grandfather. Diabetes is in the family as well. SOCIAL HISTORY Rare alcohol use. No other habits of concern. Presents with his spouse or partner today. REVIEW OF SYSTEMS CONSTITUTIONAL: No fevers, chills, or weight change. Positive fatigue, which has worsened again. HEENT: No headache or vision changes. CARDIOVASCULAR: No chest pain, dyspnea on exertion, or edema. RESPIRATORY: No shortness of breath, wheeze, or cough. GASTROINTESTINAL: No nausea, vomiting, diarrhea, or constipation. GENITOURINARY: No dysuria or hematuria. MUSCULOSKELETAL: No weakness or joint pain. PSYCHIATRIC: No anxiety or depression. NEUROLOGIC: No numbness or headaches. HEMATOLOGIC: No bruising or bleeding. SKIN: No concerning rashes or lesions. The remainder of 14-point review of systems is otherwise negative. PHYSICAL EXAMINATION VITAL SIGNS: Blood pressure 116/70, pulse 86, respiratory rate 16, temperature 100.1 Fahrenheit, oxygen saturation 95% on room air. Weight 75.5 kg. Pain 0/10, fatigue 0/10. GENERAL: Stable condition, resting comfortably in the chair. HEENT: Normocephalic, atraumatic. CARDIOVASCULAR: Deferred today. ABDOMEN: Prior exam showed no organomegaly or masses including no splenomegaly. Remainder of physical exam deferred today due to amount of time spent in counseling and discussion. IMPRESSION/REPORT/PLAN Mr. Galvan is a very pleasant 63-year-old gentleman with the followin. Polycythemia vera. Continue Jakafi 15 mg twice daily. His labs are pending today. 2. Chronic fatigue. This is likely multifactorial. I do believe B12 is a component and I will recheck that today and initiate therapy. He did not want to take the B12 pills so we will try a B12 injection today. Hopefully, this is helpful. As his energy improved significantly with Jakafi and then worsened without change, I believe we are dealing with another variable. We may need to have a more extensive fatigue workup in the future as well if B12 and longer amount of time with the higher dose Jakafi does not improve his symptoms. I would like to see him back later this spring. BILLING: Return visit level 4. Total time 30 minutes, counseling time 20. MTDD
[2019-02-03 16:21] VITALS: BP 116/70
[~2019-03-06] MED LIST changes: +CYANOCOBALAMIN 1000MCG/ML VIAL IM ONLY ONE; -INFLUENZA VIRUS VAC 0.5ML SYR IM ONLY ONE; +RUXO10TA PO
[2019-03-06 15:29] LABS: PLATELET COUNT, AUTOMATED 407 K/uL (150-450)
== END ==
LOC: ONC 12-06 17:49 → SPU 02-03 16:00
PROVIDERS: ATTEND Internal Medicine
DX: D45 Polycythemia vera (principal); Z79.82 Long term (current) use of aspirin; R53.83 Other fatigue
CPT/HCPCS: 36415; 82607; 82728; 82746; 83540; 83550; 84443; 85025; 96372; 99195; 99212; J3420; 82040; 82247; 82310; 82374; 82435; 82565; 82947; 84075; 84132; 84155; 84295; 84450; 84460; 84520